=== PATIENT | female | born 1975 | race Asian ===

== ENCOUNTER 2022-05-04 04:02 | Emergency (ER) | payer BC ==
[2022-05-04 04:24] VITALS: BP 157/85; PULSE 85; RESP 18; BMI 28.9
[2022-05-04] MEDS ORDERED: MAG HYDROX/AL HYDROX/SIMETH -MYLANTA- ORAL SUSPENSION PO ONE (04:44)
[2022-05-04] MEDS ORDERED: ACETAMINOPHEN 500 MG TABLET (FP) PO ONE (04:44)
[2022-05-04] MEDS ORDERED: ACETAMINOPHEN 325 MG TABLET (FP) PO ONE (04:44)
[2022-05-04] MEDS ORDERED: FAMOTIDINE 10 MG TABLET PO ONE (04:44)
[2022-05-04] MEDS ORDERED: ACETAMINOPHEN 325 MG TABLET (FP) ONE (05:13)
[2022-05-04] MEDS ORDERED: FAMOTIDINE 20 MG TABLET ONE (05:13)
[2022-05-04] MEDS ORDERED: MAG HYDROX/AL HYDROX/SIMETH 30 ML UNIT-DOSE CUP ONE (05:13)
[2022-05-04 06:15] LABS: BASO % 1.2 % (0-2.0); EOS % 1.4 % (0-4.5); HEMATOCRIT 40.5 % (32.4-45.2); HEMOGLOBIN 13.3 GM/dL (10.7-15.3); LYMPH % 29.4 % (8-40); MCH 26.4 pg (25.7-33.7); MCHC 32.8 g/dl (32.0-36.0); MEAN CELL VOLUME 80.3 fl (80-96); MEAN PLT VOLUME 8.3 fl (7.5-11.1); MONO % 6.9 % (3.8-10.2); NEUT % 61.1 % (42.8-82.8); PLATELET COUNT 134 10^3/uL (134-434); RBC 5.04 M/mm3 (3.60-5.2); RDW 14.9 % (11.6-15.6); WHITE BLOOD COUNT 6.6 K/mm3 (4.0-10.0)
[2022-05-04 06:21] LABS: INR 1.03 (0.83-1.09); PROTHROMBIN TIME (PATIENT) 11.9 SEC (9.7-13.0)
[2022-05-04 06:24] LABS: ACTIVATED PTT 34.2 SECONDS (25.2-36.5)
[2022-05-04 06:30] LABS: BLOOD UREA NITROGEN 13.3 mg/dL (7-18); CALCIUM 9.2 mg/dL (8.5-10.1)
[2022-05-04 06:31] LABS: ALBUMIN 4.2 g/dl (3.4-5.0)
[2022-05-04 06:34] LABS: CREATININE 0.6 mg/dL (0.55-1.3)
[2022-05-04 06:35] LABS: TOT PROT 7.5 g/dl (6.4-8.2)
[2022-05-04 08:50] LABS: BILIRUBIN,TOTAL 0.4 mg/dL (0.2-1)
== END 2022-05-04 09:00 | disposition home or self-care (01) ==
LOC: JER 04:02
DX: R07.9 Chest pain, unspecified (principal)
CPT/HCPCS: 0241U-QW; 36415; 71046-TC-FY; 80053; 84484; 85025; 85610; 85730; 93005; 93010; 99285-25